=== PATIENT | female | born 1980 | race Caucasian/White ===

== ENCOUNTER 2017-06-29 16:59 | Inpatient (IN) ==
[2017-06-29 17:59] LABS: Apearance,Urine CLEAR (Clear); Bacteria,Urine Occasional /HPF (Few); Bilirubin,Urine Negative (Negative); Blood, Urine Small mg/dL (Negative); Glucose,Urine (UA) Negative (Negative); Ketones,Urine Negative (Negative); Mucus,Urine Occasional /LPF (Occasional); Nitrite,Urine Negative (Negative); Protein,Urine Negative; RBC,Urine <1 /HPF (0-4); Urine Color Yellow (Yellow); Urine Specific Gravity 1.004 (1.001-1.035); Urine Urobilinogen < 2.0 EU/DL (0.2-1.0); WBC,Urine 1 /HPF (0-6)
[2017-06-29] MEDS ORDERED: BUTORPHANOL 1 MG/ML VIAL IV PRN (18:37)
[2017-06-29] MEDS ORDERED: MEPERIDINE 50 MG/1 ML VIAL IM PRN (18:37)
[2017-06-29] MEDS ORDERED: LACTATED RINGERS 1,000 ML IV ONE (18:37)
[2017-06-29 19:43] LABS: Basophils % 0.3 % (0.0-0.8); Eosinophils # 0.1 10*3/uL (0.0-0.87); Eosinophils % 0.7 % (0.00-10.9); Hematocrit 35.3 VOL% (35.7-47.0); Hemoglobin 12.9 GM/DL (12.0-16.0); Immature Granulocytes % 1.1 %; Immature Granulocytes Absolute 0.11 #; Lymphocytes # 2.5 10*3/uL (1.4-4.0); Lymphocytes % 24.3 % (21.3-54.2); Mean Corpuscular HGB Conc 36.5 GM/DL (32-36); Mean Corpuscular Hemoglobin 32 PG (27-34); Mean Corpuscular Volume 86.1 FL (87-102); Mean Platelet Volume 10.6 FL (9.6-12.0); Monocytes # 0.7 10*3/uL (0.11-0.8); Monocytes % 7.3 % (1.7-12.7); Neutrophils # 6.7 10*3/uL (1.4-7.4); Neutrophils % 66.3 % (38.7-73.9); Platelet Count 153 T/CUMM (130-400); Red Cell Distribution Width 12.6 % (9.3-17.3); White Blood Count 10.1 T/CUMM (4-12)
[2017-06-29] MEDS: LACTATED RINGERS 1,000 ML IV SCH (19:45)
[2017-06-29 20:00] LABS: INR 0.9; PT Patient Result 9.4 SECS; Partial Thromboplastin Time 28.2 SECS (0-40)
[2017-06-29] MEDS: LABETALOL 100 MG TABLET PO SCH (20:10)
[2017-06-29 20:17] LABS: Alanine Aminotransferase 19 U/L (13-56); Albumin 2.6 G/DL (3.4-5.0); Alkaline Phosphatase 157 U/L (45-117); Aspartate Amino Transferase 25 U/L (0-37); Bilirubin,Total < 0.39 MG/DL (0.2-1.0); Blood Urea Nitrogen 8 MG/DL (7-18); Calcium 8.5 MG/DL (8.5-10.1); Glucose 74 MG/DL (74-106); Osmolality,Calculated 264.2 MOS/KG (273-304); Potassium 4.1 MMOL/L (3.5-5.1); Sodium 134 MMOL/L (136-145); Uric Acid 6.3 MG/DL (2.6-6.0)
[2017-06-30] MEDS: LABETALOL 100 MG TABLET PO SCH ×3 (02:32→21:15)
[2017-06-30] MEDS ORDERED: OXYTOCIN/LR 20 UNIT/1,000 ML BAG IV SCH (05:00)
[2017-06-30] MEDS: LACTATED RINGERS 1,000 ML IV SCH ×3 (06:00→13:11)
[2017-06-30] MEDS: AMPICILLIN INJ 2,000 MG in SODIUM CHLORIDE 0.9% 50 ML IV SCH ×4 (06:00→23:40)
[2017-06-30] MEDS ORDERED: fentaNYL 2 MCG/ROPIV 0.2% EPID 150 ML EPIDURAL SCH (12:47)
[2017-06-30] MEDS ORDERED: CITRIC ACID/SODIUM CITRATE 30 ML UDCUP PO ONE (12:47)
[2017-06-30] MEDS ORDERED: hydrOXYzine HCL 25 MG/1 ML VIAL IM PRN (12:47)
[2017-06-30] MEDS ORDERED: ONDANSETRON 4 MG/2 ML VIAL IV ONE (12:47)
[2017-06-30] MEDS ORDERED: FAMOTIDINE 20 MG/2 ML VIAL IV ONE (12:47)
[2017-06-30] MEDS ORDERED: diphenhydrAMINE 50 MG/1 ML VIAL IV PRN ×2 (12:47)
[2017-06-30] MEDS ORDERED: ePHEDrine 50 MG/ML AMP IV PRN (12:47)
[2017-06-30] MEDS ORDERED: PROMETHAZINE 25 MG/1 ML VIAL IM ONE (12:47)
[2017-06-30] MEDS: ONDANSETRON 4 MG/2 ML VIAL IV PRN (13:06)
[2017-06-30 15:26] LABS: Apearance,Urine CLEAR (Clear); Bacteria,Urine Occasional /HPF (Few); Bilirubin,Urine Negative (Negative); Blood, Urine Negative (Negative); Glucose,Urine (UA) Negative (Negative); Ketones,Urine Negative (Negative); Mucus,Urine Occasional /LPF (Occasional); Nitrite,Urine Negative (Negative); Protein,Urine 100 MG/DL; RBC,Urine 1 /HPF (0-4); Urine Color Yellow (Yellow); Urine Specific Gravity 1.018 (1.001-1.035); Urine Urobilinogen < 2.0 EU/DL (0.2-1.0); WBC,Urine 2 /HPF (0-6)
[2017-06-30] MEDS ORDERED: LIDOCAINE 1% 50 ML VIAL ONE (15:45)
[2017-06-30] MEDS ORDERED: miSOPROStol 200 MCG TABLET ONE (15:45)
[2017-06-30] MEDS ORDERED: TERBUTALINE 1 MG/1 ML VIAL SUBCUT ONE ×2 (17:03→17:04)
[2017-06-30] MEDS ORDERED: OXYTOCIN/LR 20 UNIT/1,000 ML BAG IV ONE (17:25)
[2017-06-30] MEDS ORDERED: BISACODYL 10 MG SUPP RECTAL PRN (17:25)
[2017-06-30] MEDS ORDERED: RHO(D) IMMUNE GLOBULIN 300 MCG SYRINGE IM ONE (17:25)
[2017-06-30] MEDS ORDERED: ACETAMINOPHEN 325 MG TABLET PO PRN (17:25)
[2017-06-30] MEDS ORDERED: BENZOCAINE 20%/MENTHOL 0.5% SPRAY 56 GM CAN TOP PRN (17:25)
[2017-06-30] MEDS ORDERED: HYDROCORTISONE 2.5% RECTAL CREAM 30 GM TUBE TOP PRN (17:25)
[2017-06-30] MEDS ORDERED: LANOLIN 50% CREAM 0.3 OZ TUBE TOP PRN (17:25)
[2017-06-30] MEDS ORDERED: WITCH HAZEL PADS 100/JAR TOP PRN (17:25)
[2017-06-30] MEDS ORDERED: DIPH/TET/ACEL PERT BOOSTER VACCINE 0.5 ML VIAL IM ONE (17:25)
[2017-06-30] MEDS ORDERED: MEASLES/MUMPS/RUBELLA VACCINE 0.5 ML VIAL SUBCUT ONE (17:25)
[2017-06-30] MEDS ORDERED: oxyCODONE/ACETAMINOPHEN 5-325 MG TABLET PO PRN ×2 (17:25)
[2017-06-30] MEDS ORDERED: ONDANSETRON 4 MG/2 ML VIAL IV PRN (17:25)
[2017-06-30] MEDS ORDERED: IBUPROFEN 800 MG TABLET PO PRN (17:25)
[2017-06-30] MEDS ORDERED: MEPERIDINE 50 MG/1 ML VIAL IV ONE (18:30)
[2017-06-30] MEDS: DOCUSATE SODIUM 100 MG CAPSULE PO SCH (21:13)
[2017-06-30] MEDS: ACETAMINOPHEN/CODEINE 300-30 MG TABLET PO PRN (22:52)
[2017-07-01] MEDS: ONDANSETRON 4 MG/2 ML VIAL IV PRN (00:14)
[2017-07-01] MEDS: ACETAMINOPHEN/CODEINE 300-30 MG TABLET PO PRN ×2 (03:12→22:21)
[2017-07-01] MEDS: AMPICILLIN INJ 2,000 MG in SODIUM CHLORIDE 0.9% 50 ML IV SCH ×3 (05:51→18:10)
[2017-07-01 06:34] LABS: Basophils % 0.3 % (0.0-0.8); Eosinophils % 0.3 % (0.00-10.9); Hematocrit 26.3 VOL% (35.7-47.0); Immature Granulocytes % 0.8 %; Lymphocytes # 2.7 10*3/uL (1.4-4.0); Mean Corpuscular HGB Conc 35.4 GM/DL (32-36); Mean Corpuscular Hemoglobin 32 PG (27-34); Mean Corpuscular Volume 89.2 FL (87-102); Mean Platelet Volume 10.2 FL (9.6-12.0); Monocytes # 0.8 10*3/uL (0.11-0.8); Monocytes % 6.7 % (1.7-12.7); Neutrophils # 8.6 10*3/uL (1.4-7.4); Neutrophils % 69.9 % (38.7-73.9); Platelet Count 123 T/CUMM (130-400); Red Cell Distribution Width 12.8 % (9.3-17.3); White Blood Count 12.3 T/CUMM (4-12)
[2017-07-01 06:51] LABS: Hemoglobin 9.3 GM/DL (12.0-16.0); Red Blood Count 2.95 MC/CUMM (3.8-5.5)
[2017-07-01] MEDS: DOCUSATE SODIUM 100 MG CAPSULE PO SCH ×2 (08:36→20:58)
[2017-07-01] MEDS: MULTIVITAMIN (PRENATAL) TABLET PO SCH (08:36)
[2017-07-01] MEDS: LABETALOL 100 MG TABLET PO SCH ×2 (08:36→20:58)
[2017-07-01] MEDS: FERROUS SULFATE 325 MG TABLET PO SCH ×2 (08:36→20:58)
[2017-07-01] MEDS ORDERED: RHO(D) IMMUNE GLOBULIN 300 MCG SYRINGE IM ONE ×2 (17:07→21:53)
[2017-07-02 07:50] VITALS: BP 139/77
[2017-07-02] MEDS: MULTIVITAMIN (PRENATAL) TABLET PO SCH (09:10)
[2017-07-02] MEDS: FERROUS SULFATE 325 MG TABLET PO SCH (09:10)
[2017-07-02] MEDS: LABETALOL 100 MG TABLET PO SCH (09:10)
[2017-07-02] MEDS: DOCUSATE SODIUM 100 MG CAPSULE PO SCH (09:11)
[2017-07-02] MEDS ORDERED: INFLUENZA VIRUS VACCINE 0.5 ML SYRINGE IM ONE (09:40)
== END 2017-07-02 12:50 | disposition home or self-care (01) | DRG 775 ==
LOC: N.LDOUT 16:59 → N.LD 17:01 → N.OB 06-30 20:20
PROVIDERS: ADMIT Specialist; ATTEND Specialist

== ENCOUNTER 2020-04-05 01:12 | Inpatient (IN) ==
[2020-04-05] MEDS ORDERED: ONDANSETRON 4 MG/2 ML VIAL IV PRN ×2 (01:22→02:05)
[2020-04-05] MEDS ORDERED: LACTATED RINGERS 1,000 ML IV ONE (01:22)
[2020-04-05] MEDS ORDERED: CITRIC ACID/SODIUM CITRATE 30 ML UDCUP PO ONE (01:26)
[2020-04-05] MEDS ORDERED: hydrOXYzine HCL 25 MG/1 ML VIAL IM PRN (01:26)
[2020-04-05] MEDS ORDERED: NALOXONE 0.4 MG/ML VIAL IV PRN (01:26)
[2020-04-05] MEDS ORDERED: PROMETHAZINE 25 MG/1 ML VIAL IM ONE (01:26)
[2020-04-05] MEDS ORDERED: ONDANSETRON 4 MG/2 ML VIAL IV ONE (01:26)
[2020-04-05] MEDS ORDERED: diphenhydrAMINE 50 MG/1 ML VIAL IV PRN ×2 (01:26)
[2020-04-05] MEDS ORDERED: ePHEDrine 50 MG/ML VIAL IV PRN (01:26)
[2020-04-05] MEDS ORDERED: LACTATED RINGERS 1,000 ML IV SCH (01:30)
[2020-04-05] MEDS ORDERED: fentaNYL 2 MCG/ROPIV 0.2% EPID 100 ML EPIDURAL SCH (01:30)
[2020-04-05] MEDS ORDERED: miSOPROStoL 200 MCG TABLET ONE (01:35)
[2020-04-05] MEDS ORDERED: OXYTOCIN/LR 20 UNIT/1,000 ML BAG IV ONE ×3 (01:36→02:05)
[2020-04-05] MEDS ORDERED: METHYLERGONOVINE 0.2 MG/1 ML AMP ONE (01:36)
[2020-04-05] MEDS ORDERED: CARBOPROST TROMETHAMINE 250 MCG/ML AMP IM ONE (01:36)
[2020-04-05] MEDS ORDERED: TRANEXAMIC ACID 1,000 MG/10 ML VIAL ONE (01:36)
[2020-04-05] MEDS: FAMOTIDINE 20 MG/2 ML VIAL IV ONE ×2 (01:40→01:56)
[2020-04-05] MEDS ORDERED: LIDOCAINE 1% 50 ML VIAL ONE (01:43)
[2020-04-05 01:44] LABS: Basophils % 0.4 % (0.0-0.8); Eosinophils # 0.2 10*3/uL (0.0-0.87); Eosinophils % 2.2 % (0.00-10.9); Hematocrit 39.8 VOL% (35.7-47.0); Hemoglobin 13.8 GM/DL (12.0-16.0); Immature Granulocytes % 0.9 %; Immature Granulocytes Absolute 0.09 #; Lymphocytes # 3.2 10*3/uL (1.4-4.0); Lymphocytes % 31.3 % (21.3-54.2); Mean Corpuscular HGB Conc 34.7 GM/DL (32-36); Mean Corpuscular Volume 85.2 FL (87-102); Mean Platelet Volume 10.2 FL (9.6-12.0); Monocytes % 6.6 % (1.7-12.7); Neutrophils % 58.6 % (38.7-73.9); Platelet Count 157 T/CUMM (130-400); Red Blood Count 4.67 MC/CUMM (3.8-5.5); Red Cell Distribution Width 12.3 % (9.3-17.3); White Blood Count 10.2 T/CUMM (4-12)
[2020-04-05] MEDS ORDERED: BUTORPHANOL 2 MG/ML VIAL ONE (01:44)
[2020-04-05] MEDS ORDERED: BUTORPHANOL 2 MG/ML VIAL IV ONE (01:54)
[2020-04-05] MEDS ORDERED: HYDROCORTISONE 2.5% RECTAL CREAM 30 GM TUBE TOP PRN (02:05)
[2020-04-05] MEDS ORDERED: MEASLES/MUMPS/RUBELLA VACCINE 0.5 ML VIAL SUBCUT ONE (02:05)
[2020-04-05] MEDS ORDERED: BISACODYL 10 MG SUPP RECTAL PRN (02:05)
[2020-04-05] MEDS ORDERED: ACETAMINOPHEN 325 MG TABLET PO PRN (02:05)
[2020-04-05] MEDS ORDERED: RHO(D) IMMUNE GLOBULIN 300 MCG SYRINGE IM ONE (02:05)
[2020-04-05] MEDS ORDERED: oxyCODONE/ACETAMINOPHEN 5-325 MG TABLET PO PRN ×2 (02:05)
[2020-04-05] MEDS ORDERED: WITCH HAZEL PADS 100/JAR TOP PRN (02:05)
[2020-04-05] MEDS ORDERED: BENZOCAINE 20%/MENTHOL 0.5% SPRAY 56 GM CAN TOP PRN (02:05)
[2020-04-05] MEDS ORDERED: DIPH/TET/ACEL PERT BOOSTER VACCINE 0.5 ML VIAL IM ONE (02:05)
[2020-04-05] MEDS ORDERED: LANOLIN 50% CREAM 0.3 OZ TUBE TOP PRN (02:05)
[2020-04-05 02:07] LABS: Albumin 2.9 G/DL (3.4-5.0); Bilirubin,Total 0.7 MG/DL (0.2-1.0); Calcium 9.3 MG/DL (8.5-10.1); Osmolality,Calculated 272.7 MOS/KG (273-304)
[2020-04-05 02:14] LABS: Cord Arterial Blood HCO3 19.7 MMOL/L; Cord Venous Blood HCO3 23.1 MMOL/L; Cord Venous Blood PCO2 35.8 MMHG; Cord Venous Blood PO2 31.1
[2020-04-05] MEDS: IBUPROFEN 800 MG TABLET PO PRN ×3 (07:01→20:27)
[2020-04-05] MEDS: DOCUSATE SODIUM 100 MG CAPSULE PO SCH ×2 (10:11→20:27)
[2020-04-05 10:15] LABS: Basophils % 0.2 % (0.0-0.8); Eosinophils % 0.3 % (0.00-10.9); Hematocrit 35.2 VOL% (35.7-47.0); Hemoglobin 11.8 GM/DL (12.0-16.0); Immature Granulocytes % 0.7 %; Immature Granulocytes Absolute 0.08 #; Lymphocytes # 2.4 10*3/uL (1.4-4.0); Lymphocytes % 19.3 % (21.3-54.2); Mean Corpuscular HGB Conc 33.5 GM/DL (32-36); Mean Corpuscular Volume 88.7 FL (87-102); Mean Platelet Volume 10.3 FL (9.6-12.0); Monocytes % 5.4 % (1.7-12.7); Neutrophils % 74.1 % (38.7-73.9); Platelet Count 158 T/CUMM (130-400); Red Blood Count 3.97 MC/CUMM (3.8-5.5); Red Cell Distribution Width 12.3 % (9.3-17.3); White Blood Count 12.3 T/CUMM (4-12)
[2020-04-06 09:32] VITALS: BP 127/79
[2020-04-06] MEDS ORDERED: RHO(D) IMMUNE GLOBULIN 300 MCG SYRINGE IM ONE (11:07)
[2020-04-06] MEDS: IBUPROFEN 800 MG TABLET PO PRN (11:46)
[2020-04-06] MEDS: DOCUSATE SODIUM 100 MG CAPSULE PO SCH (11:47)
== END 2020-04-06 13:20 | disposition home or self-care (01) | DRG 807 ==
LOC: N.LDOUT 01:12 → N.LD 01:15 → N.OB 05:03
PROVIDERS: ADMIT Specialist; ATTEND Specialist